=== PATIENT | female | born 1930 | race Caucasian/White ===

== ENCOUNTER 2020-06-02 20:47 | Emergency (ER) | payer OTHER ==
[~2020-06-02] VITALS: Ht 165.1 cm; Wt 56.8 kg
--- NOTE | 2020-06-02 21:56 | NUR ---
PT IS NOW RESPONDING WITH ONE TO TWO WORD ANSWERS. SHE KNOWS WHERE SHE IS. SHE DOES NOT KNOW WHAT YEAR IT IS. SHE TOLD ME THERE WAS JUST AN ELECTION BUT DOES NOT KNOW WHO THE PRESIDENT IS.
[2020-06-02 21:58] LABS: BASOPHILS # (AUTO) 0.1 X10'3 (0-0.2); EOSINOPHILS # (AUTO) 0.2 X10'3 (0-0.9); LYMPHOCYTES # (AUTO) 2.4 X10'3 (1.1-4.8); MONOCYTES # (AUTO) 0.9 X10'3 (0-0.9)
[2020-06-02 21:59] LABS: CLARITY,URINE CLEAR (Clear); COLOR,URINE YELLOW (Yellow); GLUCOSE, URINE NEGATIVE (Neg); KETONES,URINE NEGATIVE (Neg); LEUKOCYTE ESTERASE ,URINE NEGATIVE (Neg); NITRITES, URINE NEGATIVE (Neg); OCCULT BLOOD,URINE TRACE-INTACT (Neg); PROTEIN,URINE NEGATIVE (Neg); UROBILINOGEN,URINE 0.2 E.U/dL (0.2-1.0)
[2020-06-02 22:00] LABS: BASOPHILS % (AUTO) 0.8 % (0-1); EOSINOPHILS % (AUTO) 2.6 % (0-6); HEMATOCRIT 46.8 % (35.0-45.0); LYMPHOCYTES % (AUTO) 28.5 % (21-51); MEAN CORPUSCULAR HEMOGLOBIN 32.7 PG (27.0-31.0); MEAN CORPUSCULAR HGB CONC 34.3 g/dL (33.0-36.5); MEAN CORPUSCULAR VOLUME 95.4 FL (78-98); MEAN PLATELET VOLUME 8.4 FL (7.4-10.4); NEUTROPHILS # (AUTO) 4.9 X10'3 (1.8-7.7); NEUTROPHILS % (AUTO) 57.1 % (42-75); PLATELET COUNT 547 X10'3 (140-440); RED CELL DISTRIBUTION WIDTH 14.1 % (11.5-14.5); WHITE BLOOD COUNT 8.6 X10'3 (4.5-11.0)
--- NOTE | 2020-06-02 22:03 | NUR ---
CALLED [facility] ([facility]) TO ASK QUESTIONS REGARDING PT BASELINE
[2020-06-02 22:09] LABS: ALANINE AMINOTRANSFERASE 18 U/L (12-78); ALBUMIN 3.5 G/DL (3.4-5.0); ALBUMIN/GLOBULIN RATIO 0.8 (1.1-1.5); ALKALINE PHOSPHATASE 183 IU/L (46-116); ANION GAP 9 (8-16); ASPARTATE AMINO TRANSFERASE 19 U/L (10-37); BILIRUBIN,TOTAL 0.9 MG/DL (0.1-1.0); BLOOD UREA NITROGEN 22 MG/DL (7-18); BUN/CREATININE RATIO 19.8 (6.6-38.0); CALCIUM 9.3 MG/DL (8.5-10.1); CHLORIDE 102 MMOL/L (99-107); CREATININE 1.11 MG/DL (0.40-0.90); GLUCOSE 114 MG/DL (70-104); POTASSIUM 4.4 MMOL/L (3.5-5.1); SODIUM 137 MMOL/L (135-145); TOTAL CARBON DIOXIDE 26.3 MMOL/L (24-32); TOTAL PROTEIN 7.8 G/DL (6.4-8.2); eGFR 46 ML/MIN
[2020-06-02] MEDS ORDERED: ALEN70TA60 PO (22:09)
[2020-06-02] MEDS ORDERED: DOCU250C96 PO (22:09)
[2020-06-02] MEDS ORDERED: ATOR10TA87 PO (22:09)
[2020-06-02] MEDS ORDERED: FAMO20TA8 PO (22:09)
[2020-06-02] MEDS ORDERED: CYAN-34 PO (22:09)
[2020-06-02] MEDS ORDERED: APIX2.5T PO (22:09)
[2020-06-02] MEDS ORDERED: BISA10SU62 RC (22:09)
[2020-06-02] MEDS ORDERED: ACET-2119 PO (22:09)
[2020-06-02] MEDS ORDERED: CALC-1215 PO (22:09)
[2020-06-02] MEDS ORDERED: MELA5TAB12 PO (22:09)
[2020-06-02] MEDS ORDERED: AMYL1CAP60 PO (22:09)
[2020-06-02] MEDS ORDERED: CAPS60CR6 TP (22:09)
[2020-06-02] MEDS ORDERED: SENN-263 PO (22:09)
[2020-06-02] MEDS ORDERED: MULT-1085 PO (22:09)
[2020-06-02 22:12] LABS: UA COLLECTION TYPE STRAIGHT CATH
[2020-06-02 22:13] LABS: BACTERIA,URINE NONE SEEN /HPF (Neg); RBC,URINE 0-2 /HPF (0-2); SQUAMOUS EPITHELIAL CELL,UR NONE SEEN /LPF (FEW); WBC,URINE NONE SEEN /HPF (0-4)
--- NOTE | 2020-06-02 22:37 | NUR ---
[facility] PLEASE CALL BACK
--- NOTE | 2020-06-02 23:03 | NUR ---
spoke with diana at the facility. Diana stated she is new and unable to answer baseline questions
--- NOTE | 2020-06-02 23:19 | NUR ---
Spoke with Eliezer pt has episode of difficulties finding words but states she is not normally confused at baseline.
--- NOTE | 2020-06-02 23:58 | NUR ---
PT RECEIVED NEUROCONSULT. PT IS ANSWERING QUESTIONS APPROPRIATELY AND FOLLOWING COMMANDS. [facility] AND FACILITY NOTIFIED. PT WILL BE TRANSPORTED HOME BY JORDYN CARGO
[2020-06-03 00:28] VITALS: BP 155/74
== END 2020-06-03 00:34 | disposition home or self-care (01) ==
LOC: ER 20:48
DX: G31.89 Other specified degenerative diseases of nervous system (principal); G89.29 Other chronic pain; M54.89 Other dorsalgia; F17.200 Nicotine dependence, unspecified, uncomplicated; Z88.1 Allergy status to other antibiotic agents; Z88.8 Allergy status to other drugs, medicaments and biological substances; Z79.899 Other long term (current) drug therapy
CPT/HCPCS: 36415; 70450; 71045; 80053; 81001; 83605; 84145; 84484; 85025; 87040; 93005; 99285

== ENCOUNTER 2020-08-14 16:36 | Emergency (ER) | payer OTHER ==
[~2020-08-14] VITALS: Ht 165.1 cm; Wt 66.0 kg
[~2020-08-14 16:36] MED LIST: ACET-2119 PO; ALEN70TA60 PO; AMYL1CAP60 PO; APIX2.5T PO; ATOR10TA87 PO; BISA10SU62 RC; CALC-1215 PO; CAPS60CR6 TP; CYAN-34 PO; DOCU250C96 PO; FAMO20TA8 PO; MELA5TAB12 PO; MULT-1085 PO; SENN-263 PO
[2020-08-14] MEDS ORDERED: acetaminophen 325mg tablet PO ONE (16:55)
--- NOTE | 2020-08-14 19:15 | NUR ---
PT DAUGHTER IN LAW ON THE WAY TO GET PT. REPORT GIVEN TO HELENE AT [facility] REGARING PT CONDITION AND DISCHARGE.
[2020-08-14 19:21] VITALS: BP 140/70
== END 2020-08-14 19:39 | disposition home or self-care (01) ==
LOC: ER 16:36
DX: M25.552 Pain in left hip (principal); R07.81 Pleurodynia; M79.652 Pain in left thigh; Z88.1 Allergy status to other antibiotic agents; Z88.8 Allergy status to other drugs, medicaments and biological substances; Z79.01 Long term (current) use of anticoagulants; Z79.899 Other long term (current) drug therapy; W01.0XXA Fall on same level from slipping, tripping and stumbling without subsequent striking against object, initial encounter; Y93.89 Activity, other specified; Y92.89 Other specified places as the place of occurrence of the external cause; Y99.8 Other external cause status
CPT/HCPCS: 71250; 73502; 73552; 73590; 99284

== ENCOUNTER 2022-09-07 11:21 | Inpatient (IN) | payer OTHER ==
[~2022-09-07] VITALS: Ht 167.6 cm; Wt 81.8 kg
[~2022-09-07 11:21] MED LIST changes: +ACET-3414 PO; +BISA-155 PO; -BISA10SU62 RC; +CALC500T11 PO; +EUCA1LOZ37 PO; +FURO20TA4 PO; +LOPE2TAB25 PO; +MAGN24002 PO; +NEOM1OIN8 TOP; +ROBDML PO
[2022-09-07 11:44] LABS: BASOPHILS # (AUTO) 0.1 X10'3 (0-0.2); BASOPHILS % (AUTO) 0.8 % (0-1); EOSINOPHILS # (AUTO) 0.2 X10'3 (0-0.9); EOSINOPHILS % (AUTO) 2.7 % (0-6)
[2022-09-07 11:46] LABS: HEMATOCRIT 49.9 % (35.0-45.0); HEMOGLOBIN 16.9 g/dl (12.0-16.0); LYMPHOCYTES # (AUTO) 2.1 X10'3 (1.1-4.8); MEAN CORPUSCULAR HEMOGLOBIN 32.7 PG (27.0-31.0); MEAN CORPUSCULAR HGB CONC 33.9 g/dL (33.0-36.5); MEAN CORPUSCULAR VOLUME 96.5 FL (78-98); MEAN PLATELET VOLUME 8.4 FL (7.4-10.4); MONOCYTES # (AUTO) 0.8 X10'3 (0-0.9); MONOCYTES % (AUTO) 9.1 % (2-12); NEUTROPHILS # (AUTO) 5.9 X10'3 (1.8-7.7); NEUTROPHILS % (AUTO) 64.4 % (42-75); PLATELET COUNT 602 X10'3 (140-440); RED BLOOD COUNT 5.16 X10'6 (4.20-5.60); RED CELL DISTRIBUTION WIDTH 14.3 % (11.5-14.5); WHITE BLOOD COUNT 9.2 X10'3 (4.5-11.0)
--- NOTE | 2022-09-07 12:08 | NUR ---
pt to ct
[2022-09-07 12:09] LABS: ALANINE AMINOTRANSFERASE 20 U/L (12-78); ALBUMIN 3.9 G/DL (3.4-5.0); ALKALINE PHOSPHATASE 83 IU/L (46-116); ANION GAP 7 (8-16); ASPARTATE AMINO TRANSFERASE 24 U/L (10-37); BLOOD UREA NITROGEN 15 MG/DL (7-18); BUN/CREATININE RATIO 11.5 (10.0-20.0); CALCIUM 9.2 MG/DL (8.5-10.1); CHLORIDE 103 MMOL/L (99-107); CREATININE 1.31 MG/DL (0.40-0.90); GLUCOSE 95 MG/DL (70-104); POTASSIUM 4.4 MMOL/L (3.5-5.1); SODIUM 138 MMOL/L (135-145); TOTAL CARBON DIOXIDE 28.3 MMOL/L (24-32); TOTAL PROTEIN 7.8 G/DL (6.4-8.2); eGFR 38 ML/MIN
[2022-09-07 12:16] LABS: CLARITY,URINE CLEAR (Clear); COLOR,URINE YELLOW (Yellow); GLUCOSE, URINE NEGATIVE (Neg); KETONES,URINE NEGATIVE (Neg); LEUKOCYTE ESTERASE ,URINE NEGATIVE (Neg); NITRITES, URINE NEGATIVE (Neg); OCCULT BLOOD,URINE NEGATIVE (Neg); PROTEIN,URINE NEGATIVE (Neg); UROBILINOGEN,URINE 0.2 E.U/dL (0.2-1.0)
[2022-09-07 12:21] LABS: PLATELET ESTIMATE INCREASED; TOTAL CELLS COUNTED 100
[2022-09-07 12:24] LABS: UA COLLECTION TYPE STRAIGHT CATH
--- NOTE | 2022-09-07 12:53 | NUR ---
Success A new connect request was successfully created for: JIMI HOLLIS : 1930 ConnectID: [id number] REASON: Status Epilepticus ACUITY: Acuity Level 1 SUBMITTED:
[2022-09-07] MEDS ORDERED: levetiracetam inj 1,000 MG in normal saline 100ml IV soln 90 ML IV STA (13:18)
[2022-09-07] MEDS ORDERED: levetiracetam inj 1,000 MG in normal saline 100ml IV soln 100 ML IV STA (13:21)
[2022-09-07 13:29] LABS: CREATINE KINASE 113 U/L (26-192)
[2022-09-07] MEDS ORDERED: magnesium hydroxide 30ml (MOM) UD suspension PO PRN (14:30)
[2022-09-07] MEDS ORDERED: ondansetron/PF 4mg/2ml inj IV PRN (14:30)
[2022-09-07] MEDS ORDERED: acetaminophen 325mg tablet PO PRN ×2 (14:30)
[2022-09-07] MEDS ORDERED: potassium Cl 40MEQ/1/2NS 520ml 520 ML IV PRN (14:30)
[2022-09-07] MEDS ORDERED: ondansetron 4mg rapidly disintigrating tab PO PRN (14:30)
[2022-09-07] MEDS ORDERED: acetaminophen 650mg rectal suppository RC PRN (14:30)
[2022-09-07] MEDS ORDERED: potassium Cl 20 mEq SR tablet PO PRN ×2 (14:30)
[2022-09-07] MEDS ORDERED: mag hydrox/Alum hydrox/simeth 30ml oral suspension PO PRN (14:30)
[2022-09-07] MEDS ORDERED: magnesium 2GM in 50ml NS 50 ML IV PRN (14:30)
[2022-09-07] MEDS ORDERED: magnesium 4gm in 100ml NS 100 ML IV PRN (14:30)
[2022-09-07] MEDS ORDERED: magnesium Cl slow-release 64mg tablet PO PRN (14:30)
[2022-09-07] MEDS: normal saline 1000ml 1,000 ML IV SCH (14:59)
--- NOTE | 2022-09-07 15:47 | NUR ---
dr pizano at the bedside
--- NOTE | 2022-09-07 15:54 | NUR ---
pt to xray
--- NOTE | 2022-09-07 16:02 | NUR ---
pt returns from xray
--- NOTE | 2022-09-07 16:40 | NUR ---
Patient has arrived to floor via gurney by [facility] [employer] Gonzales. Pt able to ambulate to bed with fww. Son and daughter in law at bedside. Pt able to verbalize needs and per DIL she is slightly weaker than prior to seizure activity but close to baseline.
[2022-09-07 17:34] VITALS: BP 109/71
[2022-09-07 18:00] VITALS: BP 129/66
--- NOTE | 2022-09-07 18:31 | NUR ---
Report given to Shannon RN, all questions answered. Family was at bedside. Pt resting comfortably. Admission charting done, Shannon will do 2RN, MRSA swab and medications have been sent to pharmacist to review.
[2022-09-07] MEDS: K and/or MAG REPLACEMENT MC SCH (20:00)
[2022-09-07] MEDS: levetiracetam 250mg tablet PO SCH (20:16)
[2022-09-07] MEDS: docusate sod 100mg capsule PO SCH (20:16)
[2022-09-07 22:00] VITALS: BP 144/67
[2022-09-07] MEDS ORDERED: LEVE250T4 PO (22:15)
[2022-09-07] MEDS ORDERED: LEVO25TA7 PO (22:23)
[2022-09-07] MEDS ORDERED: SERT-432 PO (22:25)
[2022-09-08] MEDS: normal saline 1000ml 1,000 ML IV SCH (01:29)
[2022-09-08 06:00] VITALS: BP 112/64
--- NOTE | 2022-09-08 06:11 | NUR ---
Problems reprioritized. Patient report given, questions answered & plan of care reviewed with EAN Hightower.
[2022-09-08 06:36] LABS: BASOPHILS # (AUTO) 0.1 X10'3 (0-0.2); BASOPHILS % (AUTO) 0.8 % (0-1); EOSINOPHILS # (AUTO) 0.3 X10'3 (0-0.9); EOSINOPHILS % (AUTO) 3.8 % (0-6); HEMATOCRIT 46.2 % (35.0-45.0); HEMOGLOBIN 15.6 g/dl (12.0-16.0); LYMPHOCYTES # (AUTO) 1.8 X10'3 (1.1-4.8); LYMPHOCYTES % (AUTO) 22.8 % (21-51); MEAN CORPUSCULAR HEMOGLOBIN 32.7 PG (27.0-31.0); MEAN CORPUSCULAR HGB CONC 33.8 g/dL (33.0-36.5); MEAN CORPUSCULAR VOLUME 96.7 FL (78-98); MEAN PLATELET VOLUME 8.5 FL (7.4-10.4); MONOCYTES # (AUTO) 0.9 X10'3 (0-0.9); NEUTROPHILS # (AUTO) 4.8 X10'3 (1.8-7.7); NEUTROPHILS % (AUTO) 61.6 % (42-75); PLATELET COUNT 489 X10'3 (140-440); RED BLOOD COUNT 4.78 X10'6 (4.20-5.60); RED CELL DISTRIBUTION WIDTH 14.7 % (11.5-14.5); WHITE BLOOD COUNT 7.8 X10'3 (4.5-11.0)
[2022-09-08 06:49] LABS: ALANINE AMINOTRANSFERASE 16 U/L (12-78); ALBUMIN/GLOBULIN RATIO 0.9 (1.1-1.5); ALKALINE PHOSPHATASE 66 IU/L (46-116); ANION GAP 4 (8-16); ASPARTATE AMINO TRANSFERASE 25 U/L (10-37); BILIRUBIN,TOTAL 1.2 MG/DL (0.1-1.0); BLOOD UREA NITROGEN 13 MG/DL (7-18); BUN/CREATININE RATIO 12.1 (10.0-20.0); CALCIUM 8.7 MG/DL (8.5-10.1); CHLORIDE 107 MMOL/L (99-107); CREATININE 1.07 MG/DL (0.40-0.90); GLUCOSE 91 MG/DL (70-104); MAGNESIUM 2.1 MG/DL (1.5-2.4); POTASSIUM 4.2 MMOL/L (3.5-5.1); SODIUM 141 MMOL/L (135-145); TOTAL CARBON DIOXIDE 29.6 MMOL/L (24-32); TOTAL PROTEIN 6.4 G/DL (6.4-8.2); eGFR 48 ML/MIN
[2022-09-08] MEDS: K and/or MAG REPLACEMENT MC SCH (08:00)
[2022-09-08] MEDS: levetiracetam 250mg tablet PO SCH (08:54)
[2022-09-08] MEDS: docusate sod 100mg capsule PO SCH (08:54)
[2022-09-08] MEDS ORDERED: apixaban 2.5mg tablet PO SCH (09:16)
[2022-09-08] MEDS ORDERED: LEVE500T PO (11:46)
[2022-09-08] MEDS ORDERED: LIPASE/PROTEASE/AMYLASE 10,500 units CAPSULE.DR PO SCH (13:00)
[2022-09-08] MEDS ORDERED: sertraline 25mg tablet PO SCH (21:00)
[2022-09-09] MEDS ORDERED: levoTHYROXINE 25mcg tablet PO SCH (07:00)
[2022-09-09] MEDS ORDERED: atorvastatin 10mg tablet PO SCH (08:00)
== END 2022-09-08 16:20 | disposition home health service (06) | DRG 101 ==
LOC: ER 11:22 → ED HOLD 14:35 → ORTHO 4S 16:35
PROVIDERS: ADMIT Family Medicine; ATTEND Family Medicine
DX: G40.401 Other generalized epilepsy and epileptic syndromes, not intractable, with status epilepticus (principal); E78.00 Pure hypercholesterolemia, unspecified; I12.9 Hypertensive chronic kidney disease with stage 1 through stage 4 chronic kidney disease, or unspecified chronic kidney disease; M81.0 Age-related osteoporosis without current pathological fracture; R61 Generalized hyperhidrosis; N18.9 Chronic kidney disease, unspecified; Z79.01 Long term (current) use of anticoagulants; Z79.83 Long term (current) use of bisphosphonates; Z79.899 Other long term (current) drug therapy; Z86.718 Personal history of other venous thrombosis and embolism; Z86.73 Personal history of transient ischemic attack (TIA), and cerebral infarction without residual deficits; Z88.1 Allergy status to other antibiotic agents; Z88.8 Allergy status to other drugs, medicaments and biological substances
CPT/HCPCS: 36415; 70450; 71045; 72170; 73590; 80053; 81003; 82140; 82550; 82948; 83605; 83735; 84484; 85007; 85025; 87081; 97116; 97161; 97530; 99285; G0378; J1953; J3490; J7030

== ENCOUNTER 2022-10-23 15:13 | Emergency (ER) | payer OTHER ==
[~2022-10-23] VITALS: Ht 170.2 cm; Wt 75.0 kg
[~2022-10-23 15:13] MED LIST changes: +LEVE500T PO; +LEVO25TA7 PO; +SERT-432 PO
[2022-10-23] MEDS ORDERED: levetiracetam inj 1,000 MG in normal saline 100ml IV soln 90 ML IV STA (15:40)
[2022-10-23] MEDS ORDERED: normal saline 1000ML IV soln IVB ONE (15:40)
[2022-10-23] MEDS ORDERED: LORazepam 2 mg/ml vial IV ONE (15:40)
[2022-10-23] MEDS ORDERED: magnesium 2GM in 50ml NS 50 ML IV ONE (15:40)
[2022-10-23] MEDS ORDERED: levetiracetam inj 1,000 MG in normal saline 100ml IV soln 100 ML IV STA (15:46)
[2022-10-23 16:50] LABS: BASOPHILS # (AUTO) 0.1 X10'3 (0-0.2); BASOPHILS % (AUTO) 0.7 % (0-1); EOSINOPHILS # (AUTO) 0.2 X10'3 (0-0.9); EOSINOPHILS % (AUTO) 2.6 % (0-6); HEMATOCRIT 51.4 % (35.0-45.0); HEMOGLOBIN 17.2 g/dl (12.0-16.0); LYMPHOCYTES # (AUTO) 2.4 X10'3 (1.1-4.8); LYMPHOCYTES % (AUTO) 26.9 % (21-51); MEAN CORPUSCULAR HEMOGLOBIN 32.2 PG (27.0-31.0); MEAN CORPUSCULAR HGB CONC 33.5 g/dL (33.0-36.5); MEAN CORPUSCULAR VOLUME 96.2 FL (78-98); MEAN PLATELET VOLUME 8.7 FL (7.4-10.4); MONOCYTES % (AUTO) 10.8 % (2-12); NEUTROPHILS # (AUTO) 5.2 X10'3 (1.8-7.7); PLATELET COUNT 540 X10'3 (140-440); RED BLOOD COUNT 5.34 X10'6 (4.20-5.60); RED CELL DISTRIBUTION WIDTH 14.9 % (11.5-14.5); WHITE BLOOD COUNT 8.9 X10'3 (4.5-11.0)
[2022-10-23 17:03] LABS: ALANINE AMINOTRANSFERASE 19 U/L (12-78); ALBUMIN 3.8 G/DL (3.4-5.0); ALKALINE PHOSPHATASE 74 IU/L (46-116); ANION GAP 10 (8-16); ASPARTATE AMINO TRANSFERASE 25 U/L (10-37); BILIRUBIN,TOTAL 0.8 MG/DL (0.1-1.0); BLOOD UREA NITROGEN 18 MG/DL (7-18); BUN/CREATININE RATIO 15.4 (10.0-20.0); CHLORIDE 103 MMOL/L (99-107); CREATININE 1.17 MG/DL (0.40-0.90); GLUCOSE 91 MG/DL (70-104); POTASSIUM 4.1 MMOL/L (3.5-5.1); SODIUM 141 MMOL/L (135-145); TOTAL CARBON DIOXIDE 27.9 MMOL/L (24-32); TOTAL PROTEIN 7.5 G/DL (6.4-8.2); eGFR 44 ML/MIN
[2022-10-23 17:45] LABS: COLOR,URINE YELLOW (Yellow); GLUCOSE, URINE NEGATIVE (Neg); KETONES,URINE NEGATIVE (Neg); LEUKOCYTE ESTERASE ,URINE TRACE (Neg); NITRITES, URINE NEGATIVE (Neg); OCCULT BLOOD,URINE TRACE-INTACT (Neg); PROTEIN,URINE NEGATIVE (Neg); UROBILINOGEN,URINE 0.2 E.U/dL (0.2-1.0)
[2022-10-23 17:47] LABS: CLARITY,URINE SLIGHTLY CLOUDY (Clear); UA COLLECTION TYPE STRAIGHT CATH
[2022-10-23 18:03] LABS: BACTERIA,URINE 1+ /HPF (Neg); RBC,URINE 0-2 /HPF (0-2); SQUAMOUS EPITHELIAL CELL,UR NONE SEEN /LPF (FEW)
--- NOTE | 2022-10-23 18:53 | NUR ---
assumed care of pt, pt up at bedside to amb with walker, slightly unsteady on feet, no dizziness/lightheadedness, family said pt lives at assisted living and they can help pt as needed, pt able to drink water, no choking.
[2022-10-23 18:54] VITALS: BP 148/83
== END 2022-10-23 19:10 | disposition home or self-care (01) ==
LOC: ER 15:13
DX: G40.802 Other epilepsy, not intractable, without status epilepticus (principal); E78.00 Pure hypercholesterolemia, unspecified; I13.10 Hypertensive heart and chronic kidney disease without heart failure, with stage 1 through stage 4 chronic kidney disease, or unspecified chronic kidney disease; N18.9 Chronic kidney disease, unspecified; E03.9 Hypothyroidism, unspecified
CPT/HCPCS: 36415; 70450; 80053; 81001; 85025; 87088; 93005; 96365; 96375; 99285; J1953; J2060; J3475; J3490; J7030; 96368; A4353